=== PATIENT | female | born 1960 ===

== ENCOUNTER 2022-06-27 07:59 | Day surgery (SDC) | payer BC ==
[~2022-06-27 07:59] MED LIST: Acetaminophen 325 MG Tab PO SCH; Lactated Ringers 1,000 ML IV SCH; Lidocaine 1% 5 ML VIAL ONE; Lidocaine 1%/Sod Bicarbonate in NS 8.4% 1 ML Syringe IDERM PRN; Midazolam 1 MG/ML 2 ML SDV ONE; Pregabalin 25 MG Cap PO SCH; Propofol 200 MG/20 ML SDV ONE; Sodium Chloride 0.9% 10 ML Syringe FLUSH PRN; Sodium Chloride 0.9% 10 ML Syringe FLUSH SCH; ceFAZolin 2 GM Vial ONE; fentaNYL 100 MCG/2 ML SDV ONE; oxyCODONE ER 10 MG TAB.ER PO SCH
[2022-06-27] MEDS ORDERED: EPINEPHrine 1 MG/ML SDV ONE (08:08)
[2022-06-27] MEDS ORDERED: Ropivacaine 0.5% 5 MG/ML 30 ML SDV ONE (08:08)
[2022-06-27] MEDS ORDERED: Phenylephrine HCl In 0.9% NaCl 1 MG/10 ML Vial ONE (09:32)
[2022-06-27] MEDS ORDERED: HYDROmorphone 0.5 MG/0.5 ML Syringe IVPUSH PRN (09:37)
[2022-06-27] MEDS ORDERED: Ondansetron 4 MG/2 ML SDV IVPUSH PRN (09:37)
[2022-06-27] MEDS ORDERED: fentaNYL 100 MCG/2 ML SDV IVPUSH PRN (09:37)
[2022-06-27] MEDS ORDERED: ePHEDrine 50 MG/ML SDV ONE (09:47)
[2022-06-27] MEDS ORDERED: Lactated Ringers 1,000 ML ONE ×2 (09:47→10:46)
[2022-06-27] MEDS: Morphine 8 MG, EPINEPHrine 0.3 MG, Cefuroxime 750 MG, Ketorolac 30 MG, Sodium Chloride ... PRN ×10 (10:16→10:36)
[2022-06-27] MEDS: Vancomycin 1 GM SDV ONE ×2 (10:16→10:42)
[2022-06-27] MEDS: Bupivacaine 0.25% 10 ML SDV ONE ×2 (10:17→10:57)
[2022-06-27] MEDS: Triamcinolone Acetonide 40 MG/ML 1 ML SDV ONE ×2 (10:17→10:57)
[2022-06-27] MEDS ORDERED: oxyCODONE 5 MG Tab PO PRN (11:23)
== END 2022-06-27 14:45 | disposition home or self-care (01) ==
LOC: JD.SDS 07:59
PROVIDERS: ATTEND Orthopaedic Surgery
DX: M17.0 Bilateral primary osteoarthritis of knee (principal); E83.52 Hypercalcemia; Z79.899 Other long term (current) drug therapy; Z98.890 Other specified postprocedural states; Z87.891 Personal history of nicotine dependence
CPT/HCPCS: 0055T; 20610; 27447; 36415; 73560; 80048; 97110; 97116; 97161; A9270; C1713; C1776; J0171; J0690; J0697; J1885; J2250; J2270; J2704; J2795; J3010; J3301; J3370; J3490; J7120; 01402; 64450; 76942